=== PATIENT | male | born 1960 | race Caucasian/White ===

== ENCOUNTER 2024-09-18 22:28 | Inpatient (IN) | payer BC, MEDICAID ==
[~2024-09-18] VITALS: Ht 182.9 cm; Wt 147.0 kg
[2024-09-18] MEDS ORDERED: magnesium Cl slow-release 64mg tablet PO PRN (23:15)
[2024-09-18] MEDS ORDERED: magnesium sulf-water 2g/50mL 50 ML IV PRN (23:15)
[2024-09-18] MEDS ORDERED: acetaminophen 325mg tablet PO PRN (23:15)
[2024-09-18] MEDS ORDERED: ondansetron/PF 4mg/2ml inj IV PRN (23:15)
[2024-09-18] MEDS ORDERED: magnesium sulf-water 4G/100mL 100 ML IV PRN (23:15)
[2024-09-18] MEDS ORDERED: lactulose 20gm/30ml cup PO SCH (23:30)
[2024-09-18] MEDS: propranolol LA 60 MG cap.SA.24H PO SCH (23:30)
[2024-09-18] MEDS ORDERED: haloperidol 5mg tablet PO PRN (23:55)
[2024-09-18] MEDS ORDERED: haloperidol lactate 5mg/ml inj IM PRN (23:55)
[2024-09-18] MEDS ORDERED: LORazepam 2 mg/ml vial IV PRN (23:55)
[2024-09-18 23:58] LABS: BASOPHILS % (AUTO) 0.2 % (0-1); EOSINOPHILS # (AUTO) 0.1 X10'3 (0-0.9); EOSINOPHILS % (AUTO) 0.3 % (0-6); HEMATOCRIT 33.2 % (42.0-52.0); LYMPHOCYTES # (AUTO) 1.2 X10'3 (1.1-4.8); LYMPHOCYTES % (AUTO) 5.7 % (21-51); MEAN CORPUSCULAR HEMOGLOBIN 31.9 PG (27.0-31.0); MEAN CORPUSCULAR HGB CONC 33.2 g/dL (33.0-36.5); MEAN CORPUSCULAR VOLUME 96.1 FL (78-98); MONOCYTES # (AUTO) 2.9 X10'3 (0-0.9); NEUTROPHILS # (AUTO) 16.6 X10'3 (1.8-7.7); NEUTROPHILS % (AUTO) 79.8 % (42-75); PLATELET COUNT 192 X10'3 (140-440); RED BLOOD COUNT 3.45 X10'6 (4.70-6.10); RED CELL DISTRIBUTION WIDTH 16.1 % (11.5-14.5); WHITE BLOOD COUNT 20.8 X10'3 (4.5-11.0)
[2024-09-19 00:05] LABS: PRO BRAIN NATRIURETIC PEPTIDE 35 PG/ML (0-125)
[2024-09-19] MEDS ORDERED: PERFLUTREN PROTEIN-A MICROSPHR (Optison) 0.22 MG/ML 3ML VIAL IV PRN (00:15)
[2024-09-19 00:23] LABS: ANISOCYTOSIS 1+; LYMPHOCYTES % (MANUAL) 9 % (21-51); METAMYLEOCYTES% (MANUAL) 1 % (0-0); MONOCYTES % (MANUAL) 8 % (2-12); NEUTROPHILS % (MANUAL) 82 % (42-75); NUCLEATED RED BLOOD CELLS 2 /100WBC (0-0); PLATELET ESTIMATE NORMAL; POLYCHROMASIA 1+; TOTAL CELLS COUNTED 100
[2024-09-19 00:44] LABS: ALANINE AMINOTRANSFERASE 40 U/L (12-78); ALBUMIN 3.3 G/DL (3.4-5.0); ALBUMIN/GLOBULIN RATIO 0.9 (1.1-1.5); ALKALINE PHOSPHATASE 98 IU/L (46-116); ANION GAP 14 (8-16); ASPARTATE AMINO TRANSFERASE 51 U/L (10-37); BILIRUBIN,TOTAL 1.7 MG/DL (0.1-1.0); BLOOD UREA NITROGEN 31 MG/DL (7-18); BUN/CREATININE RATIO 26.1 (10.0-20.0); CALCIUM 8.4 MG/DL (8.5-10.1); CHLORIDE 95 MMOL/L (99-107); CREATININE 1.19 MG/DL (0.60-1.10); GLUCOSE 206 MG/DL (70-104); POTASSIUM 3.6 MMOL/L (3.5-5.1); SODIUM 133 MMOL/L (135-145); TOTAL CARBON DIOXIDE 24.1 MMOL/L (24-32); eCRCL 72 ML/MIN; eGFR 62 ML/MIN
[2024-09-19 02:21] LABS: URINE AMPHETAMINE SCREEN NEGATIVE (Neg); URINE BARBITUATE SCREEN NEGATIVE (Neg); URINE BENZODIAZEPINES SCREEN NEGATIVE (Neg); URINE CANNABINOID SCREEN POSITIVE (Neg); URINE COCAINE SCREEN NEGATIVE (Neg); URINE METHADONE SCREEN NEGATIVE (Neg); URINE OPIATE SCREEN POSITIVE (Neg); URINE PHENCYCLIDINE SCREEN NEGATIVE (Neg)
[2024-09-19 02:40] LABS: BILIRUBIN,URINE NEGATIVE (Neg); CLARITY,URINE CLEAR (Clear); COLOR,URINE YELLOW (Yellow); GLUCOSE, URINE 500 mg/dl (Neg); KETONES,URINE 15 mg/dl (Neg); LEUKOCYTE ESTERASE ,URINE NEGATIVE (Neg); NITRITES, URINE NEGATIVE (Neg); OCCULT BLOOD,URINE NEGATIVE (Neg); PH,URINE 6.5 (4.8-8.0); PROTEIN,URINE NEGATIVE (Neg); UROBILINOGEN,URINE 0.2 E.U/dL (0.2-1.0)
[2024-09-19 02:42] LABS: UA COLLECTION TYPE URINAL
[2024-09-19] MEDS ORDERED: glucagon, human recombinant 1mg kit SUBCUT PRN (03:10)
[2024-09-19] MEDS ORDERED: DEXTROSE 15 GM of carb/4 tabs (each vial/BOTTLE has 4 tablets) PO PRN ×2 (03:10)
[2024-09-19] MEDS ORDERED: dextrose 50%-water 50ml dispensing syringe IV PRN ×2 (03:10)
[2024-09-19] MEDS: normal saline 1000ml 1,000 ML IV SCH (03:31)
[2024-09-19] MEDS: octreotide inj. 500 MCG in normal saline 100ml IV soln 97.5 ML IV SCH (03:31)
[2024-09-19] MEDS: propranolol LA 60 MG cap.SA.24H PO ONE (03:36)
[2024-09-19] MEDS: lactulose 20gm/30ml cup PO SCH (03:36)
[2024-09-19] MEDS: piperacillin/tazo 3.375gm/50ml 50 ML IV SCH (04:19)
[2024-09-19] MEDS: INSULIN LISPRO 100 UNIT/ML INSULN.PEN MULTI-DOSE SQ SCH (07:29)
[2024-09-19 07:34] LABS: APTT 22 SECONDS (22-32); INR 1.3 INR; PROTHROMBIN TIME 13.6 SECONDS (9.0-12.0)
[2024-09-19] MEDS: K and/or MAG REPLACEMENT MC SCH (08:00)
[2024-09-19] MEDS ORDERED: CefTRIAXone/D5W-Rocephin 1gm 50 ML IV SCH (08:00)
[2024-09-19 08:19] LABS: ALANINE AMINOTRANSFERASE 38 U/L (12-78); ALBUMIN 2.9 G/DL (3.4-5.0); ALBUMIN/GLOBULIN RATIO 0.9 (1.1-1.5); ALKALINE PHOSPHATASE 80 IU/L (46-116); ANION GAP 12 (8-16); ASPARTATE AMINO TRANSFERASE 46 U/L (10-37); BILIRUBIN,TOTAL 1.8 MG/DL (0.1-1.0); BLOOD UREA NITROGEN 29 MG/DL (7-18); BUN/CREATININE RATIO 27.1 (10.0-20.0); CALCIUM 8.1 MG/DL (8.5-10.1); CHLORIDE 98 MMOL/L (99-107); CHOL/HDL RATIO 3.9 (0.00-4.99); CHOLESTEROL 124 MG/DL (0-200); CREATININE 1.07 MG/DL (0.60-1.10); GLUCOSE 221 MG/DL (70-104); HDL CHOLESTEROL 32 MG/DL (35-60); LDL CHOLESTEROL 78 MG/DL (50-100); MAGNESIUM 2.5 MG/DL (1.5-2.4); PHOSPHORUS 3.8 MG/DL (2.3-4.5); SODIUM 134 MMOL/L (135-145); TOTAL PROTEIN 6.2 G/DL (6.4-8.2); TRIGLYCERIDES 118 MG/DL (20-135); eCRCL 80 ML/MIN; eGFR 70 ML/MIN
[2024-09-19 08:25] LABS: BASOPHILS % (AUTO) 0.2 % (0-1); EOSINOPHILS # (AUTO) 0.1 X10'3 (0-0.9); EOSINOPHILS % (AUTO) 0.4 % (0-6); HEMATOCRIT 29.3 % (42.0-52.0); LYMPHOCYTES # (AUTO) 0.8 X10'3 (1.1-4.8); LYMPHOCYTES % (AUTO) 5.3 % (21-51); MEAN CORPUSCULAR HGB CONC 34.1 g/dL (33.0-36.5); MEAN CORPUSCULAR VOLUME 96.7 FL (78-98); MEAN PLATELET VOLUME 8.9 FL (7.4-10.4); MONOCYTES # (AUTO) 2.1 X10'3 (0-0.9); MONOCYTES % (AUTO) 13.8 % (2-12); NEUTROPHILS # (AUTO) 12.5 X10'3 (1.8-7.7); NEUTROPHILS % (AUTO) 80.3 % (42-75); PLATELET COUNT 168 X10'3 (140-440); RED BLOOD COUNT 3.03 X10'6 (4.70-6.10); RED CELL DISTRIBUTION WIDTH 16.2 % (11.5-14.5); WHITE BLOOD COUNT 15.5 X10'3 (4.5-11.0)
[2024-09-19] MEDS: pantoprazole 40 MG vial IV SCH (08:38)
[2024-09-19] MEDS: multivitamins, therapeutics tablet PO SCH (08:38)
[2024-09-19] MEDS: thiamine 100mg/ml 2ml inj. IV SCH (08:38)
[2024-09-19] MEDS: potassium Cl 40MEQ/1/2NS 520ml 520 ML IV PRN (09:49)
[2024-09-19 10:21] LABS: TOTAL CELLS COUNTED 100
[2024-09-19 10:25] LABS: ANISOCYTOSIS 1+; PLATELET ESTIMATE NORMAL; POLYCHROMASIA 1+
[2024-09-19] MEDS: potassium Cl 20 mEq SR tablet PO PRN (15:30)
[2024-09-19] MEDS: CefTRIAXone/D5W-Rocephin 1gm 50 ML IV SCH (17:32)
[2024-09-19 18:00] VITALS: BP 116/76; PULSE 70; RESP 17; TEMP 98.2; O2SAT 100
[2024-09-19 20:00] VITALS: BP_SYST 116; BP_SYST 95; BP_SYST 98; BP_DIAS 54; BP_DIAS 57; BP_DIAS 65; PULSE 64; PULSE 71; PULSE 72; RESP 17; O2SAT 100
[2024-09-19] MEDS: acetaminophen 325mg tablet PO PRN (20:23)
[2024-09-19 22:00] VITALS: BP 116/65; PULSE 64; RESP 19; TEMP 98.3; O2SAT 97
[2024-09-20] VITALS (13 sets, daily range): BP systolic 88–158; BP diastolic 54–78; PULSE 57–72; RESP 14–18; TEMP 98–98.4; O2SAT 94–98
[2024-09-20] MEDS ORDERED: IBUP-1984 PO (05:21)
[2024-09-20] MEDS ORDERED: HYDR25TA4 PO (05:21)
[2024-09-20] MEDS ORDERED: GABA300T28 PO (05:21)
[2024-09-20] MEDS ORDERED: METF-438 PO (05:21)
[2024-09-20] MEDS ORDERED: EMPA25TA PO (05:21)
[2024-09-20] MEDS ORDERED: FLO0.4C PO (05:21)
[2024-09-20] MEDS ORDERED: FINA5TAB11 PO (05:21)
[2024-09-20] MEDS ORDERED: AMIT50TA15 PO (05:21)
[2024-09-20] MEDS ORDERED: INSU100I8 SQ (05:21)
[2024-09-20] MEDS ORDERED: POTA20PA31 PO (05:21)
[2024-09-20 08:42] LABS: BASOPHILS # (AUTO) 0.1 X10'3 (0-0.2); BASOPHILS % (AUTO) 0.7 % (0-1); EOSINOPHILS # (AUTO) 0.3 X10'3 (0-0.9); HEMATOCRIT 26.9 % (42.0-52.0); HEMOGLOBIN 8.9 g/dl (14.0-17.9); LYMPHOCYTES # (AUTO) 0.8 X10'3 (1.1-4.8); LYMPHOCYTES % (AUTO) 9.3 % (21-51); MEAN CORPUSCULAR HEMOGLOBIN 32.5 PG (27.0-31.0); MEAN CORPUSCULAR HGB CONC 33.2 g/dL (33.0-36.5); MEAN CORPUSCULAR VOLUME 97.9 FL (78-98); MEAN PLATELET VOLUME 8.7 FL (7.4-10.4); MONOCYTES # (AUTO) 1.5 X10'3 (0-0.9); MONOCYTES % (AUTO) 16.9 % (2-12); NEUTROPHILS # (AUTO) 6.4 X10'3 (1.8-7.7); NEUTROPHILS % (AUTO) 70.1 % (42-75); PLATELET COUNT 139 X10'3 (140-440); RED BLOOD COUNT 2.75 X10'6 (4.70-6.10); RED CELL DISTRIBUTION WIDTH 16.5 % (11.5-14.5); WHITE BLOOD COUNT 9.1 X10'3 (4.5-11.0)
[2024-09-20 08:50] LABS: APTT 23 SECONDS (22-32); INR 1.4 INR; PROTHROMBIN TIME 13.9 SECONDS (9.0-12.0)
[2024-09-20 09:08] LABS: ALANINE AMINOTRANSFERASE 33 U/L (12-78); ALBUMIN 2.6 G/DL (3.4-5.0); ALBUMIN/GLOBULIN RATIO 0.9 (1.1-1.5); ALKALINE PHOSPHATASE 64 IU/L (46-116); ANION GAP 6 (8-16); ASPARTATE AMINO TRANSFERASE 68 U/L (10-37); BILIRUBIN,TOTAL 1.6 MG/DL (0.1-1.0); BLOOD UREA NITROGEN 22 MG/DL (7-18); BUN/CREATININE RATIO 19.5 (10.0-20.0); CALCIUM 7.4 MG/DL (8.5-10.1); CHLORIDE 100 MMOL/L (99-107); CREATININE 1.13 MG/DL (0.60-1.10); GLUCOSE 178 MG/DL (70-104); MAGNESIUM 2.3 MG/DL (1.5-2.4); PHOSPHORUS 2.7 MG/DL (2.3-4.5); POTASSIUM 3.3 MMOL/L (3.5-5.1); SODIUM 132 MMOL/L (135-145); THYROID STIMULATING HORMONE 1.34 ulU/ml (0.34-4.50); TOTAL CARBON DIOXIDE 26.5 MMOL/L (24-32); TOTAL PROTEIN 5.5 G/DL (6.4-8.2); eCRCL 75 ML/MIN; eGFR 66 ML/MIN
[2024-09-20 11:04] LABS: ANISOCYTOSIS 1+; PLATELET ESTIMATE DECREASED; POLYCHROMASIA 1+; TOTAL CELLS COUNTED 100
[2024-09-20] MEDS ORDERED: MIDAZolam 1 MG/ML 5ML VIAL ONE (12:57)
[2024-09-20] MEDS ORDERED: fentaNYL/PF 50MCG/1 ML 2ML syringe ONE (12:57)
[2024-09-20] MEDS ORDERED: LIDOcaine 2% Viscous 15ml cup ONE (12:58)
[2024-09-20] MEDS: potassium Cl 20 mEq SR tablet PO PRN (19:18)
[2024-09-21 06:00] VITALS: BP 134/68; PULSE 68; RESP 15; TEMP 97.7; O2SAT 100
[2024-09-21 07:38] LABS: BASOPHILS # (AUTO) 0.1 X10'3 (0-0.2); BASOPHILS % (AUTO) 0.9 % (0-1); EOSINOPHILS # (AUTO) 0.2 X10'3 (0-0.9); EOSINOPHILS % (AUTO) 3.4 % (0-6); HEMATOCRIT 25.7 % (42.0-52.0); HEMOGLOBIN 8.7 g/dl (14.0-17.9); LYMPHOCYTES # (AUTO) 0.7 X10'3 (1.1-4.8); LYMPHOCYTES % (AUTO) 10.2 % (21-51); MEAN CORPUSCULAR HEMOGLOBIN 33.3 PG (27.0-31.0); MEAN CORPUSCULAR VOLUME 97.9 FL (78-98); MEAN PLATELET VOLUME 8.8 FL (7.4-10.4); MONOCYTES # (AUTO) 1.3 X10'3 (0-0.9); MONOCYTES % (AUTO) 18.3 % (2-12); NEUTROPHILS # (AUTO) 4.8 X10'3 (1.8-7.7); NEUTROPHILS % (AUTO) 67.2 % (42-75); PLATELET COUNT 144 X10'3 (140-440); RED BLOOD COUNT 2.63 X10'6 (4.70-6.10); RED CELL DISTRIBUTION WIDTH 16.7 % (11.5-14.5); WHITE BLOOD COUNT 7.1 X10'3 (4.5-11.0)
[2024-09-21 07:42] LABS: APTT 25 SECONDS (22-32); INR 1.3 INR; PROTHROMBIN TIME 13.5 SECONDS (9.0-12.0)
[2024-09-21 07:46] LABS: ALANINE AMINOTRANSFERASE 38 U/L (12-78); ALBUMIN 2.5 G/DL (3.4-5.0); ALBUMIN/GLOBULIN RATIO 0.8 (1.1-1.5); ALKALINE PHOSPHATASE 72 IU/L (46-116); ANION GAP 4 (8-16); ASPARTATE AMINO TRANSFERASE 91 U/L (10-37); BILIRUBIN,TOTAL 1.7 MG/DL (0.1-1.0); BLOOD UREA NITROGEN 17 MG/DL (7-18); CHLORIDE 99 MMOL/L (99-107); CREATININE 1.06 MG/DL (0.60-1.10); GLUCOSE 166 MG/DL (70-104); MAGNESIUM 1.9 MG/DL (1.5-2.4); PHOSPHORUS 2.8 MG/DL (2.3-4.5); POTASSIUM 3.6 MMOL/L (3.5-5.1); SODIUM 128 MMOL/L (135-145); TOTAL CARBON DIOXIDE 24.6 MMOL/L (24-32); TOTAL PROTEIN 5.5 G/DL (6.4-8.2); eCRCL 80 ML/MIN; eGFR 71 ML/MIN
[2024-09-21 08:00] VITALS: RESP 14; O2SAT 99
[2024-09-21 08:06] LABS: ANISOCYTOSIS 1+; PLATELET ESTIMATE NORMAL; POLYCHROMASIA 1+; TOTAL CELLS COUNTED 100
[2024-09-21] MEDS: gabapentin 300mg capsule PO SCH (08:34)
[2024-09-21] MEDS: HYDROchlorothiazide 25mg tablet PO SCH (08:34)
[2024-09-21] MEDS: tamsulosin 0.4mg capsule PO SCH (08:34)
[2024-09-21] MEDS: EMPAGLIFLOZIN 25 MG TABLET PO SCH (08:34)
[2024-09-21] MEDS: HYDROcodone/acetaminophen 5mg/325mg tablet PO ONE (10:37)
[2024-09-21 11:37] VITALS: RESP 16
[2024-09-21] MEDS ORDERED: FOLI0.4T6 PO (12:48)
[2024-09-21] MEDS: HALLS - SOOTHE MENTHOL 1.8 MG cough drop LOZENGE MM PRN (12:48)
[2024-09-21] MEDS ORDERED: THIA50TA10 PO (12:48)
[2024-09-21] MEDS ORDERED: FURO-150 PO (12:48)
[2024-09-21] MEDS ORDERED: MULT-1085 PO (12:48)
[2024-09-21] MEDS ORDERED: SPIR25TA5 PO (12:48)
[2024-09-21] MEDS ORDERED: PANT-47 PO (12:48)
[2024-09-21] MEDS ORDERED: FERR324T4 PO (13:03)
[2024-09-21] MEDS ORDERED: LACT10SO78 PO (13:03)
[2024-09-23] MEDS ORDERED: folic acid 1mg tablet PO SCH (08:00)
== END 2024-09-21 15:25 | disposition home or self-care (01) | DRG 432 ==
LOC: ER 22:29 → ED HOLD 23:18 → ORTHO 4S 09-19 13:29
PROVIDERS: ADMIT Internal Medicine Critical Care Medicine; ATTEND Internal Medicine
PROC: 0DJ08ZZ Inspection of Upper Intestinal Tract, Via Natural or Artificial Opening Endoscopic (ICD-10-PCS; principal; 2024-09-20)
DX: K70.30 Alcoholic cirrhosis of liver without ascites (principal); I85.11 Secondary esophageal varices with bleeding; E51.2 Wernicke's encephalopathy; K76.6 Portal hypertension; E72.20 Disorder of urea cycle metabolism, unspecified; N17.9 Acute kidney failure, unspecified; I50.32 Chronic diastolic (congestive) heart failure; I42.9 Cardiomyopathy, unspecified; E51.9 Thiamine deficiency, unspecified; K44.9 Diaphragmatic hernia without obstruction or gangrene; D64.9 Anemia, unspecified; Y90.9 Presence of alcohol in blood, level not specified; E11.9 Type 2 diabetes mellitus without complications; K20.90 Esophagitis, unspecified without bleeding; K29.80 Duodenitis without bleeding; I95.1 Orthostatic hypotension; F10.10 Alcohol abuse, uncomplicated; K31.89 Other diseases of stomach and duodenum
CPT/HCPCS: 36415; 43235; 76705; 80053; 80061; 80305; 81003; 82103; 82140; 82607; 82948; 83036; 83605; 83735; 83880; 83930; 84100; 84145; 84443; 85007; 85025; 85610; 85730; 87081; 93005; 93306; 97116; 97161; 97530; 99152; 99285; A4620; G0378; J0696; J2250; J2354; J2470; J2543; J3010; J3411; J3480; J7030

== ENCOUNTER 2024-11-17 10:31 | Inpatient (IN) | payer BC, MEDICAID ==
[~2024-11-17] VITALS: Ht 182.9 cm; Wt 153.2 kg
[~2024-11-17 10:31] MED LIST: AMIT50TA15 PO; EMPA25TA PO; FERR324T4 PO; FINA5TAB11 PO; FLO0.4C PO; FURO-150 PO; GABA300T28 PO; INSU100I8 SQ; LACT10SO78 PO; MULT-1085 PO; PANT-47 PO; SPIR25TA5 PO; THIA50TA10 PO
[2024-11-17] MEDS: pantoprazole 40MG/NS 100ML BAG 100 ML IV SCH (11:27)
[2024-11-17] MEDS: octreotide inj. 500 MCG in normal saline 100ml IV soln 97.5 ML IV SCH ×2 (11:28→22:45)
[2024-11-17 11:51] LABS: BASOPHILS % (AUTO) 0.3 % (0-1); EOSINOPHILS % (AUTO) 0.1 % (0-6); HEMATOCRIT 29.4 % (42.0-52.0); HEMOGLOBIN 9.1 g/dl (14.0-17.9); LYMPHOCYTES # (AUTO) 0.4 X10'3 (1.1-4.8); LYMPHOCYTES % (AUTO) 2.8 % (21-51); MEAN CORPUSCULAR HEMOGLOBIN 25.6 PG (27.0-31.0); MEAN CORPUSCULAR HGB CONC 31.1 g/dL (33.0-36.5); MEAN CORPUSCULAR VOLUME 82.3 FL (78-98); MEAN PLATELET VOLUME 8.8 FL (7.4-10.4); MONOCYTES # (AUTO) 1.2 X10'3 (0-0.9); MONOCYTES % (AUTO) 9.3 % (2-12); NEUTROPHILS # (AUTO) 11.7 X10'3 (1.8-7.7); NEUTROPHILS % (AUTO) 87.5 % (42-75); PLATELET COUNT 235 X10'3 (140-440); RED BLOOD COUNT 3.57 X10'6 (4.70-6.10); RED CELL DISTRIBUTION WIDTH 19.6 % (11.5-14.5); WHITE BLOOD COUNT 13.4 X10'3 (4.5-11.0)
[2024-11-17 11:56] LABS: ALBUMIN 2.5 G/DL (3.4-5.0); ANION GAP 12 (8-16); BLOOD UREA NITROGEN 20 MG/DL (7-18); BUN/CREATININE RATIO 14.9 (10.0-20.0); CALCIUM 8.4 MG/DL (8.5-10.1); CHLORIDE 99 MMOL/L (99-107); CREATININE 1.34 MG/DL (0.60-1.10); POTASSIUM 4.8 MMOL/L (3.5-5.1); SODIUM 132 MMOL/L (135-145); TOTAL CARBON DIOXIDE 21.5 MMOL/L (24-32); eCRCL 64 ML/MIN; eGFR 54 ML/MIN
[2024-11-17 12:00] LABS: APTT 26 SECONDS (22-32); GLUCOSE 429 MG/DL (70-104); INR 1.6 INR; PROTHROMBIN TIME 15.8 SECONDS (9.0-12.0)
[2024-11-17 12:41] LABS: BILIRUBIN,URINE NEGATIVE (Neg); CLARITY,URINE CLEAR (Clear); COLOR,URINE YELLOW (Yellow); GLUCOSE, URINE 100 mg/dl (Neg); KETONES,URINE NEGATIVE (Neg); LEUKOCYTE ESTERASE ,URINE NEGATIVE (Neg); NITRITES, URINE NEGATIVE (Neg); OCCULT BLOOD,URINE NEGATIVE (Neg); PH,URINE 6.5 (4.8-8.0); PROTEIN,URINE NEGATIVE (Neg); UROBILINOGEN,URINE 0.2 E.U/dL (0.2-1.0)
[2024-11-17 12:49] LABS: UA COLLECTION TYPE CLN CATCH MIDSTREAM
[2024-11-17 13:19] LABS: ALANINE AMINOTRANSFERASE 16 U/L (12-78); ALBUMIN/GLOBULIN RATIO 0.6 (1.1-1.5); ALKALINE PHOSPHATASE 114 IU/L (46-116); ASPARTATE AMINO TRANSFERASE 29 U/L (10-37); BILIRUBIN,DIRECT 0.9 MG/DL (0-0.3); BILIRUBIN,TOTAL 2.3 MG/DL (0.1-1.0); TOTAL PROTEIN 6.4 G/DL (6.4-8.2)
[2024-11-17 14:04] VITALS: BP 131/79; PULSE 112; RESP 18
[2024-11-17 14:27] LABS: HEMATOCRIT 30.2 % (42.0-52.0); HEMOGLOBIN 9.4 g/dl (14.0-17.9); MEAN CORPUSCULAR HEMOGLOBIN 25.5 PG (27.0-31.0); MEAN CORPUSCULAR VOLUME 82.2 FL (78-98); MEAN PLATELET VOLUME 9.3 FL (7.4-10.4); PLATELET COUNT 210 X10'3 (140-440); RED BLOOD COUNT 3.68 X10'6 (4.70-6.10); RED CELL DISTRIBUTION WIDTH 19.6 % (11.5-14.5); WHITE BLOOD COUNT 12.1 X10'3 (4.5-11.0)
[2024-11-17] MEDS: ondansetron/PF 4mg/2ml inj IV ONE (15:00)
[2024-11-17] MEDS ORDERED: LIDOcaine 2% Viscous 15ml cup ONE (15:17)
[2024-11-17] MEDS ORDERED: MIDAZolam 1 MG/ML 5ML VIAL ONE ×2 (15:17→15:35)
[2024-11-17] MEDS ORDERED: fentaNYL/PF 50MCG/1 ML 2ML syringe ONE (15:17)
[2024-11-17 16:00] VITALS: BP 135/72; PULSE 118; RESP 19; O2SAT 98
[2024-11-17 16:10] VITALS: BP 105/40; PULSE 117; RESP 20; O2SAT 99
[2024-11-17 16:20] VITALS: BP 137/65; PULSE 116; RESP 23; O2SAT 100
[2024-11-17 16:30] VITALS: BP 120/41; PULSE 115; RESP 24; O2SAT 98
[2024-11-17] MEDS ORDERED: magnesium sulf-water 4G/100mL 100 ML IV PRN (19:15)
[2024-11-17] MEDS ORDERED: magnesium hydroxide 30ml (MOM) UD suspension PO PRN (19:15)
[2024-11-17] MEDS ORDERED: potassium Cl 20 mEq SR tablet PO PRN ×2 (19:15)
[2024-11-17] MEDS ORDERED: magnesium sulf-water 2g/50mL 50 ML IV PRN (19:15)
[2024-11-17] MEDS ORDERED: mag hydrox/Alum hydrox/simeth 30ml oral suspension PO PRN (19:15)
[2024-11-17] MEDS: docusate sod 100mg capsule PO SCH (20:00)
[2024-11-17] MEDS: K and/or MAG REPLACEMENT MC SCH (20:00)
[2024-11-17] MEDS ORDERED: FURO-149 PO (21:09)
[2024-11-17] MEDS ORDERED: ASPI-1265 PO (21:16)
[2024-11-17] MEDS ORDERED: [UNRECOGNIZED DRUG - CODE] (21:16)
[2024-11-17] MEDS ORDERED: FLO0.4C (21:16)
[2024-11-17] MEDS ORDERED: TRAM50TA2 PO (21:16)
[2024-11-17] MEDS ORDERED: PANT40TA54 PO (21:16)
[2024-11-17] MEDS ORDERED: SPIR50TA5 PO (21:16)
[2024-11-17] MEDS ORDERED: AMIT50TA15 PO (21:18)
[2024-11-17 21:19] LABS: HEMATOCRIT 26.8 % (42.0-52.0); HEMOGLOBIN 8.6 g/dl (14.0-17.9); MEAN CORPUSCULAR HEMOGLOBIN 26.3 PG (27.0-31.0); MEAN CORPUSCULAR HGB CONC 32.1 g/dL (33.0-36.5); MEAN CORPUSCULAR VOLUME 82.1 FL (78-98); MEAN PLATELET VOLUME 8.7 FL (7.4-10.4); PLATELET COUNT 208 X10'3 (140-440); RED BLOOD COUNT 3.27 X10'6 (4.70-6.10); WHITE BLOOD COUNT 10.5 X10'3 (4.5-11.0)
[2024-11-17] MEDS ORDERED: dextrose 50%-water 50ml dispensing syringe IV PRN ×2 (22:55)
[2024-11-17] MEDS ORDERED: DEXTROSE 15 GM of carb/4 tabs (each vial/BOTTLE has 4 tablets) PO PRN ×2 (22:55)
[2024-11-17] MEDS ORDERED: glucagon, human recombinant 1mg kit SUBCUT PRN (22:55)
[2024-11-17] MEDS ORDERED: insulin Lispro (HumaLOG) vial - multi-dose SQ SCH (23:45)
[2024-11-17] MEDS: INSULIN LISPRO 100 UNIT/ML INSULN.PEN MULTI-DOSE SQ SCH (23:51)
[2024-11-18] MEDS: acetaminophen 1,000mg/100ml IV 100 ML IV ONE (00:23)
[2024-11-18] MEDS: INSULIN LISPRO 100 UNIT/ML INSULN.PEN MULTI-DOSE SQ ONE (00:42)
[2024-11-18] MEDS: ondansetron/PF 4mg/2ml inj IV PRN (04:01)
[2024-11-18] MEDS: morphine 2 MG/ML inj. syringe IV ONE (04:02)
[2024-11-18] MEDS: INSULIN LISPRO 100 UNIT/ML INSULN.PEN MULTI-DOSE SQ SCH (04:05)
[2024-11-18] MEDS: acetaminophen 325mg tablet PO PRN (08:20)
[2024-11-18 08:52] LABS: BASOPHILS # (AUTO) 0.1 X10'3 (0-0.2); BASOPHILS % (AUTO) 0.6 % (0-1); EOSINOPHILS # (AUTO) 0.1 X10'3 (0-0.9); EOSINOPHILS % (AUTO) 1.1 % (0-6); HEMOGLOBIN 7.7 g/dl (14.0-17.9); LYMPHOCYTES # (AUTO) 0.4 X10'3 (1.1-4.8); LYMPHOCYTES % (AUTO) 4.6 % (21-51); MEAN CORPUSCULAR HEMOGLOBIN 25.8 PG (27.0-31.0); MEAN CORPUSCULAR HGB CONC 32.1 g/dL (33.0-36.5); MEAN CORPUSCULAR VOLUME 80.4 FL (78-98); MEAN PLATELET VOLUME 8.5 FL (7.4-10.4); MONOCYTES # (AUTO) 1.3 X10'3 (0-0.9); MONOCYTES % (AUTO) 13.2 % (2-12); NEUTROPHILS # (AUTO) 7.8 X10'3 (1.8-7.7); NEUTROPHILS % (AUTO) 80.5 % (42-75); PLATELET COUNT 182 X10'3 (140-440); RED BLOOD COUNT 2.98 X10'6 (4.70-6.10); RED CELL DISTRIBUTION WIDTH 19.9 % (11.5-14.5); WHITE BLOOD COUNT 9.7 X10'3 (4.5-11.0)
[2024-11-18] MEDS ORDERED: INSULIN LISPRO 100 UNIT/ML INSULN.PEN MULTI-DOSE SQ SCH (09:00)
[2024-11-18 09:30] LABS: ANISOCYTOSIS 2+; MICROCYTOSIS 1+; PLATELET ESTIMATE NORMAL; POIKILOCYTOSIS FEW; POLYCHROMASIA 1+
[2024-11-18 09:36] LABS: ALANINE AMINOTRANSFERASE 29 U/L (12-78); ALBUMIN 2.7 G/DL (3.4-5.0); ALBUMIN/GLOBULIN RATIO 0.6 (1.1-1.5); ALKALINE PHOSPHATASE 104 IU/L (46-116); ANION GAP 12 (8-16); ASPARTATE AMINO TRANSFERASE 93 U/L (10-37); BILIRUBIN,TOTAL 1.8 MG/DL (0.1-1.0); BLOOD UREA NITROGEN 18 MG/DL (7-18); BUN/CREATININE RATIO 11.6 (10.0-20.0); CALCIUM 8.4 MG/DL (8.5-10.1); CHLORIDE 101 MMOL/L (99-107); CREATININE 1.55 MG/DL (0.60-1.10); GLUCOSE 321 MG/DL (70-104); MAGNESIUM 1.6 MG/DL (1.5-2.4); POTASSIUM 3.7 MMOL/L (3.5-5.1); SODIUM 135 MMOL/L (135-145); TOTAL CARBON DIOXIDE 21.7 MMOL/L (24-32); TOTAL PROTEIN 6.9 G/DL (6.4-8.2); eCRCL 55 ML/MIN; eGFR 46 ML/MIN
[2024-11-18 10:20] LABS: HEMATOCRIT 25.3 % (42.0-52.0); HEMOGLOBIN 7.5 g/dl (14.0-17.9); MEAN CORPUSCULAR HGB CONC 29.7 g/dL (33.0-36.5); MEAN CORPUSCULAR VOLUME 87.7 FL (78-98); MEAN PLATELET VOLUME 8.7 FL (7.4-10.4); PLATELET COUNT 145 X10'3 (140-440); RED BLOOD COUNT 2.88 X10'6 (4.70-6.10); WHITE BLOOD COUNT 8.3 X10'3 (4.5-11.0)
[2024-11-18] MEDS: lactulose 20gm/30ml cup PO SCH (11:31)
[2024-11-18] MEDS: normal saline 1000ml 1,000 ML IV SCH (11:32)
[2024-11-18 17:31] LABS: % IRON SATURATION 6 % (11-46); IRON 15 UG/DL (53-167); TOTAL IRON BINDING CAPACITY 253 UG/DL (259-388)
[2024-11-18 18:50] LABS: HEMOGLOBIN A1C 5.9 % (4.5-6.2)
[2024-11-18 19:15] LABS: OSMOLALITY 303 MOSM/K (280-300)
[2024-11-18 19:15] LABS: APTT 26 SECONDS (22-32); INR 1.4 INR; PROTHROMBIN TIME 14.6 SECONDS (9.0-12.0)
[2024-11-18] MEDS: LORazepam 2 mg/ml vial IV ONE (19:16)
[2024-11-18] MEDS ORDERED: haloperidol 5mg tablet PO PRN (19:20)
[2024-11-18 19:42] LABS: BASOPHILS # (AUTO) 0.1 X10'3 (0-0.2); EOSINOPHILS # (AUTO) 0.1 X10'3 (0-0.9); LYMPHOCYTES # (AUTO) 0.6 X10'3 (1.1-4.8); MEAN PLATELET VOLUME 8.2 FL (7.4-10.4); PLATELET COUNT 238 X10'3 (140-440)
[2024-11-18 19:43] LABS: BASOPHILS % (AUTO) 0.9 % (0-1); HEMATOCRIT 24.3 % (42.0-52.0); HEMOGLOBIN 7.8 g/dl (14.0-17.9); LYMPHOCYTES % (AUTO) 4.1 % (21-51); MEAN CORPUSCULAR HEMOGLOBIN 25.7 PG (27.0-31.0); MEAN CORPUSCULAR VOLUME 80.5 FL (78-98); MONOCYTES # (AUTO) 2.1 X10'3 (0-0.9); MONOCYTES % (AUTO) 15.4 % (2-12); NEUTROPHILS % (AUTO) 78.6 % (42-75); RED BLOOD COUNT 3.02 X10'6 (4.70-6.10)
[2024-11-18 20:21] LABS: TOTAL CELLS COUNTED 100
[2024-11-18] MEDS: folic acid 1mg/0.2ml inj IV SCH (20:44)
[2024-11-18] MEDS: carVEDilol 3.125mg tablet PO ONE (20:47)
[2024-11-18] MEDS: amitriptyline 50mg tablet PO SCH (20:50)
[2024-11-18] MEDS: thiamine 100mg/ml 2ml inj. IV SCH (20:51)
[2024-11-18] MEDS ORDERED: insulin glargine (Lantus) pen - multi-dose SQ SCH (21:00)
[2024-11-18] MEDS: insulin glargine (Lantus) pen - multi-dose SQ SCH (21:37)
[2024-11-18] MEDS: haloperidol lactate 5mg/ml inj IM PRN (23:58)
[2024-11-19] VITALS (14 sets, daily range): BP systolic 107–169; BP diastolic 50–90; PULSE 89–113; RESP 14–26; TEMP 97.3–98.9; O2SAT 94–99
[2024-11-19] MEDS: LORazepam 2 mg/ml vial IV PRN (00:22)
[2024-11-19 02:34] LABS: BASOPHILS % (AUTO) 0.3 % (0-1); EOSINOPHILS # (AUTO) 0.1 X10'3 (0-0.9); EOSINOPHILS % (AUTO) 1.2 % (0-6); LYMPHOCYTES # (AUTO) 0.6 X10'3 (1.1-4.8); MEAN CORPUSCULAR HEMOGLOBIN 25.8 PG (27.0-31.0); MEAN CORPUSCULAR HGB CONC 31.8 g/dL (33.0-36.5); MEAN CORPUSCULAR VOLUME 81.1 FL (78-98); MEAN PLATELET VOLUME 8.6 FL (7.4-10.4); MONOCYTES # (AUTO) 1.4 X10'3 (0-0.9); MONOCYTES % (AUTO) 17.1 % (2-12); NEUTROPHILS # (AUTO) 5.9 X10'3 (1.8-7.7); NEUTROPHILS % (AUTO) 74.4 % (42-75); PLATELET COUNT 162 X10'3 (140-440); RED BLOOD COUNT 2.64 X10'6 (4.70-6.10); RED CELL DISTRIBUTION WIDTH 20.1 % (11.5-14.5)
[2024-11-19 02:45] LABS: HEMATOCRIT 21.4 % (42.0-52.0); HEMOGLOBIN 6.8 g/dl (14.0-17.9)
[2024-11-19 03:00] LABS: ALANINE AMINOTRANSFERASE 23 U/L (12-78); ALBUMIN 2.6 G/DL (3.4-5.0); ALBUMIN/GLOBULIN RATIO 0.7 (1.1-1.5); ALKALINE PHOSPHATASE 91 IU/L (46-116); AMYLASE 33 U/L (25-115); ANION GAP 5 (8-16); ASPARTATE AMINO TRANSFERASE 64 U/L (10-37); BILIRUBIN,TOTAL 1.9 MG/DL (0.1-1.0); BLOOD UREA NITROGEN 13 MG/DL (7-18); BUN/CREATININE RATIO 11.9 (10.0-20.0); CALCIUM 8.3 MG/DL (8.5-10.1); CHLORIDE 103 MMOL/L (99-107); CREATININE 1.09 MG/DL (0.60-1.10); GLUCOSE 192 MG/DL (70-104); LIPASE 37 U/L (16-77); MAGNESIUM 1.4 MG/DL (1.5-2.4); PHOSPHORUS 1.6 MG/DL (2.3-4.5); POTASSIUM 3.5 MMOL/L (3.5-5.1); SODIUM 133 MMOL/L (135-145); TOTAL CARBON DIOXIDE 24.6 MMOL/L (24-32); TOTAL PROTEIN 6.3 G/DL (6.4-8.2); eCRCL 78 ML/MIN; eGFR 69 ML/MIN
[2024-11-19 03:05] LABS: TOTAL CELLS COUNTED 100
[2024-11-19 03:06] LABS: ANISOCYTOSIS 2+; ELLIPTOCYTES FEW; HYPOCHROMASIA 1+; PLATELET ESTIMATE NORMAL; STOMATOCYTES FEW
[2024-11-19] MEDS: carVEDilol 3.125mg tablet PO SCH (08:00)
[2024-11-19] MEDS: multivitamins, therapeutics tablet PO SCH (08:00)
[2024-11-19] MEDS: finasteride 5mg tablet PO SCH (08:00)
[2024-11-19] MEDS: furosemide 40mg tablet PO SCH (08:00)
[2024-11-19 08:09] LABS: HEMATOCRIT 24.4 % (42.0-52.0); HEMOGLOBIN 7.9 g/dl (14.0-17.9); MEAN CORPUSCULAR HEMOGLOBIN 26.3 PG (27.0-31.0); MEAN CORPUSCULAR HGB CONC 32.2 g/dL (33.0-36.5); MEAN CORPUSCULAR VOLUME 81.8 FL (78-98); MEAN PLATELET VOLUME 8.1 FL (7.4-10.4); PLATELET COUNT 166 X10'3 (140-440); RED BLOOD COUNT 2.99 X10'6 (4.70-6.10); RED CELL DISTRIBUTION WIDTH 19.1 % (11.5-14.5); WHITE BLOOD COUNT 8.9 X10'3 (4.5-11.0)
[2024-11-19 11:39] LABS: INR 1.4 INR; PROTHROMBIN TIME 13.9 SECONDS (9.0-12.0)
[2024-11-19] MEDS: rifaximin 550mg tablet PO SCH (13:54)
[2024-11-19 16:12] LABS: HEMATOCRIT 22.3 % (42.0-52.0); MEAN CORPUSCULAR HEMOGLOBIN 24.8 PG (27.0-31.0); MEAN CORPUSCULAR HGB CONC 30.3 g/dL (33.0-36.5); MEAN CORPUSCULAR VOLUME 81.8 FL (78-98); MEAN PLATELET VOLUME 8.2 FL (7.4-10.4); PLATELET COUNT 149 X10'3 (140-440); RED BLOOD COUNT 2.73 X10'6 (4.70-6.10); RED CELL DISTRIBUTION WIDTH 19.6 % (11.5-14.5); WHITE BLOOD COUNT 7.2 X10'3 (4.5-11.0)
[2024-11-19 16:20] LABS: HEMOGLOBIN 6.8 g/dl (14.0-17.9)
[2024-11-19 16:24] LABS: INR 1.4 INR; PROTHROMBIN TIME 14.3 SECONDS (9.0-12.0)
[2024-11-19] MEDS: INSULIN LISPRO 100 UNIT/ML INSULN.PEN MULTI-DOSE SQ SCH ×2 (18:45→21:00)
[2024-11-19] MEDS: phytonadione 10 MG/1 ML amp PO SCH (20:00)
[2024-11-19 20:02] LABS: HEMOGLOBIN 7.1 g/dl (14.0-17.9); MEAN CORPUSCULAR HEMOGLOBIN 26.1 PG (27.0-31.0); MEAN CORPUSCULAR HGB CONC 32.1 g/dL (33.0-36.5); MEAN CORPUSCULAR VOLUME 81.5 FL (78-98); MEAN PLATELET VOLUME 8.1 FL (7.4-10.4); PLATELET COUNT 151 X10'3 (140-440); RED CELL DISTRIBUTION WIDTH 19.8 % (11.5-14.5); WHITE BLOOD COUNT 7.4 X10'3 (4.5-11.0)
[2024-11-19] MEDS: diphenhydrAMINE 50 mg/ml inj IM ONE (21:07)
[2024-11-20] VITALS (12 sets, daily range): BP systolic 151–184; BP diastolic 53–89; PULSE 69–105; RESP 13–30; TEMP 97.2–98.9; O2SAT 94–100
[2024-11-20 02:51] LABS: BASOPHILS % (AUTO) 0.6 % (0-1); EOSINOPHILS # (AUTO) 0.1 X10'3 (0-0.9); EOSINOPHILS % (AUTO) 1.8 % (0-6); HEMATOCRIT 26.1 % (42.0-52.0); HEMOGLOBIN 8.5 g/dl (14.0-17.9); LYMPHOCYTES # (AUTO) 0.6 X10'3 (1.1-4.8); LYMPHOCYTES % (AUTO) 9.7 % (21-51); MEAN CORPUSCULAR HGB CONC 32.4 g/dL (33.0-36.5); MEAN CORPUSCULAR VOLUME 83.2 FL (78-98); MEAN PLATELET VOLUME 8.2 FL (7.4-10.4); MONOCYTES # (AUTO) 1.1 X10'3 (0-0.9); MONOCYTES % (AUTO) 19.4 % (2-12); NEUTROPHILS # (AUTO) 3.9 X10'3 (1.8-7.7); NEUTROPHILS % (AUTO) 68.5 % (42-75); PLATELET COUNT 134 X10'3 (140-440); RED BLOOD COUNT 3.14 X10'6 (4.70-6.10); RED CELL DISTRIBUTION WIDTH 19.1 % (11.5-14.5); WHITE BLOOD COUNT 5.7 X10'3 (4.5-11.0)
[2024-11-20 03:10] LABS: ALANINE AMINOTRANSFERASE 23 U/L (12-78); ALBUMIN 2.5 G/DL (3.4-5.0); ALBUMIN/GLOBULIN RATIO 0.7 (1.1-1.5); ALKALINE PHOSPHATASE 89 IU/L (46-116); AMYLASE 27 U/L (25-115); ANION GAP 9 (8-16); ASPARTATE AMINO TRANSFERASE 52 U/L (10-37); BILIRUBIN,TOTAL 3.2 MG/DL (0.1-1.0); BLOOD UREA NITROGEN 11 MG/DL (7-18); BUN/CREATININE RATIO 11.8 (10.0-20.0); CALCIUM 8.1 MG/DL (8.5-10.1); CHLORIDE 103 MMOL/L (99-107); CREATININE 0.93 MG/DL (0.60-1.10); GLUCOSE 139 MG/DL (70-104); LIPASE 24 U/L (16-77); MAGNESIUM 1.6 MG/DL (1.5-2.4); PHOSPHORUS 2.7 MG/DL (2.3-4.5); POTASSIUM 3.3 MMOL/L (3.5-5.1); SODIUM 137 MMOL/L (135-145); TOTAL CARBON DIOXIDE 24.7 MMOL/L (24-32); TOTAL PROTEIN 6.3 G/DL (6.4-8.2); eCRCL 92 ML/MIN; eGFR 83 ML/MIN
[2024-11-20 03:13] LABS: INR 1.4 INR; PROTHROMBIN TIME 14.7 SECONDS (9.0-12.0)
[2024-11-20 03:23] LABS: TOTAL CELLS COUNTED 100
[2024-11-20] MEDS: pantoprazole 40 MG vial IV SCH (08:04)
[2024-11-20] MEDS: furosemide 40mg/4ml inj IV SCH (13:06)
[2024-11-20] MEDS: albuterol 2.5 MG/3 ML nebule NEB SCH (14:48)
[2024-11-20 15:01] LABS: ABG BASE EXCESS -0.3 mmol/L (-2.0-3.0); ABG HCO3 22.8 mmol/L (21.0-28.0); ABG OXYGEN SATURATION 97.5 % (94.0-98.0); ABG PCO2 (T) 30.8 mmHg (35.0-48.0); ABG PH (T) 7.485 (7.350-7.450); ABG PO2 (T) 83.3 mmHg (83.0-108.0); ALLEN'S TEST POSITIVE; FCOHb 1.1 % (0.5-1.5); FHHb 2.5 % (0.0-5.0); FLOW 2 L/min; FMetHb 0.3 % (0.0-1.5); FO2Hb 96.1 % (94.0-98.0); MODE NASAL CANNULA; PATIENT TEMPERATURE 36.3; TOTAL HEMOGLOBIN 9.7 G/dl (13.5-17.5)
[2024-11-20] MEDS ORDERED: potassium Cl 40MEQ/1/2NS 520ml 520 ML IV PRN (15:45)
[2024-11-20] MEDS: potassium Cl 40MEQ/1/2NS 520ml 520 ML IV PRN (17:53)
[2024-11-20] MEDS ORDERED: LORazepam 1 MG tablet PO PRN (19:20)
[2024-11-20] MEDS: LORazepam 2 mg/ml vial IV PRN (21:01)
[2024-11-21] VITALS (8 sets, daily range): BP systolic 140–167; BP diastolic 66–86; PULSE 80–94; RESP 15–30; TEMP 97.7–98.6; O2SAT 95–100
[2024-11-21 05:12] LABS: HBSAG SCREEN Negative (Negative); HEPATITIS C VIRUS ANTIBODY Reactive (Non Reactive)
[2024-11-21] MEDS: LORazepam 2 mg/ml vial IM ONE (05:50)
[2024-11-21 06:43] LABS: BASOPHILS % (AUTO) 0.6 % (0-1); EOSINOPHILS # (AUTO) 0.2 X10'3 (0-0.9); EOSINOPHILS % (AUTO) 3.1 % (0-6); HEMOGLOBIN 8.6 g/dl (14.0-17.9); LYMPHOCYTES # (AUTO) 0.5 X10'3 (1.1-4.8); LYMPHOCYTES % (AUTO) 9.1 % (21-51); MEAN CORPUSCULAR HEMOGLOBIN 26.9 PG (27.0-31.0); MEAN CORPUSCULAR VOLUME 84.1 FL (78-98); MEAN PLATELET VOLUME 8.5 FL (7.4-10.4); MONOCYTES # (AUTO) 0.9 X10'3 (0-0.9); MONOCYTES % (AUTO) 18.1 % (2-12); NEUTROPHILS # (AUTO) 3.6 X10'3 (1.8-7.7); NEUTROPHILS % (AUTO) 69.1 % (42-75); PLATELET COUNT 124 X10'3 (140-440); RED BLOOD COUNT 3.21 X10'6 (4.70-6.10); RED CELL DISTRIBUTION WIDTH 19.1 % (11.5-14.5); WHITE BLOOD COUNT 5.2 X10'3 (4.5-11.0)
[2024-11-21 06:50] LABS: ALANINE AMINOTRANSFERASE 23 U/L (12-78); ALBUMIN 2.6 G/DL (3.4-5.0); ALBUMIN/GLOBULIN RATIO 0.6 (1.1-1.5); ALKALINE PHOSPHATASE 87 IU/L (46-116); AMYLASE 31 U/L (25-115); ANION GAP 10 (8-16); ASPARTATE AMINO TRANSFERASE 61 U/L (10-37); BILIRUBIN,TOTAL 3.9 MG/DL (0.1-1.0); BLOOD UREA NITROGEN 10 MG/DL (7-18); BUN/CREATININE RATIO 10.6 (10.0-20.0); CHLORIDE 106 MMOL/L (99-107); CREATININE 0.94 MG/DL (0.60-1.10); GLUCOSE 114 MG/DL (70-104); LIPASE 38 U/L (16-77); MAGNESIUM 1.8 MG/DL (1.5-2.4); SODIUM 138 MMOL/L (135-145); TOTAL CARBON DIOXIDE 22.4 MMOL/L (24-32); TOTAL PROTEIN 6.9 G/DL (6.4-8.2); eCRCL 91 ML/MIN; eGFR 82 ML/MIN
[2024-11-21 06:51] LABS: POTASSIUM 3.5 MMOL/L (3.5-5.1)
[2024-11-21 07:46] LABS: ANISOCYTOSIS 2+; HYPOCHROMASIA 1+; PLATELET ESTIMATE DECREASED; POLYCHROMASIA 2+; TOTAL CELLS COUNTED 100
[2024-11-21] MEDS: chlordiazePOXIDE 5mg capsule PO PRN (14:48)
[2024-11-21] MEDS: LORazepam 2 mg/ml vial IV PRN (15:28)
[2024-11-21] MEDS: furosemide 40mg/4ml inj IV SCH (20:00)
[2024-11-21] MEDS ORDERED: LORazepam 2 mg/ml vial IV SCH (23:11)
[2024-11-21] MEDS: LORazepam 2 mg/ml vial IV SCH (23:19)
[2024-11-21] MEDS: LORazepam 2 mg/ml vial IV ONE (23:25)
[2024-11-22] VITALS (9 sets, daily range): BP systolic 134–150; BP diastolic 75–97; PULSE 65–101; RESP 14–24; TEMP 96.8–98.3; O2SAT 97–99
[2024-11-22 07:09] LABS: BASOPHILS % (AUTO) 0.8 % (0-1); EOSINOPHILS # (AUTO) 0.2 X10'3 (0-0.9); EOSINOPHILS % (AUTO) 4.6 % (0-6); HEMOGLOBIN 8.7 g/dl (14.0-17.9); LYMPHOCYTES # (AUTO) 0.4 X10'3 (1.1-4.8); MEAN CORPUSCULAR HEMOGLOBIN 26.8 PG (27.0-31.0); MEAN CORPUSCULAR HGB CONC 32.1 g/dL (33.0-36.5); MEAN CORPUSCULAR VOLUME 83.4 FL (78-98); MEAN PLATELET VOLUME 8.5 FL (7.4-10.4); MONOCYTES # (AUTO) 0.6 X10'3 (0-0.9); MONOCYTES % (AUTO) 17.6 % (2-12); NEUTROPHILS # (AUTO) 2.5 X10'3 (1.8-7.7); PLATELET COUNT 124 X10'3 (140-440); RED BLOOD COUNT 3.24 X10'6 (4.70-6.10); RED CELL DISTRIBUTION WIDTH 19.3 % (11.5-14.5); WHITE BLOOD COUNT 3.7 X10'3 (4.5-11.0)
[2024-11-22 07:38] LABS: INR 1.4 INR; PROTHROMBIN TIME 14.5 SECONDS (9.0-12.0)
[2024-11-22 07:53] LABS: ALANINE AMINOTRANSFERASE 19 U/L (12-78); ALBUMIN 2.6 G/DL (3.4-5.0); ALBUMIN/GLOBULIN RATIO 0.6 (1.1-1.5); ALKALINE PHOSPHATASE 80 IU/L (46-116); AMYLASE 27 U/L (25-115); ANION GAP 11 (8-16); ASPARTATE AMINO TRANSFERASE 52 U/L (10-37); BILIRUBIN,TOTAL 3.8 MG/DL (0.1-1.0); BLOOD UREA NITROGEN 6 MG/DL (7-18); BUN/CREATININE RATIO 6.4 (10.0-20.0); CALCIUM 7.7 MG/DL (8.5-10.1); CHLORIDE 104 MMOL/L (99-107); CREATININE 0.94 MG/DL (0.60-1.10); GLUCOSE 106 MG/DL (70-104); LIPASE 25 U/L (16-77); MAGNESIUM 1.7 MG/DL (1.5-2.4); PHOSPHORUS 3.5 MG/DL (2.3-4.5); SODIUM 139 MMOL/L (135-145); TOTAL CARBON DIOXIDE 24.5 MMOL/L (24-32); TOTAL PROTEIN 6.8 G/DL (6.4-8.2); eCRCL 91 ML/MIN; eGFR 82 ML/MIN
[2024-11-22 07:59] LABS: POTASSIUM 2.8 MMOL/L (3.5-5.1)
[2024-11-22] MEDS: potassium Cl 20 mEq SR tablet PO PRN (08:03)
[2024-11-22] MEDS: albuterol 2.5 MG/3 ML nebule NEB PRN (08:40)
[2024-11-22 18:57] LABS: ABG BASE EXCESS 1.6 mmol/L (-2.0-3.0); ABG HCO3 24.9 mmol/L (21.0-28.0); ABG OXYGEN SATURATION 98.3 % (94.0-98.0); ABG PCO2 (T) 34.1 mmHg (35.0-48.0); ALLEN'S TEST POSITIVE; FCOHb 0.8 % (0.5-1.5); FHHb 1.7 % (0.0-5.0); FLOW 2 L/min; FMetHb 0.3 % (0.0-1.5); FO2Hb 97.2 % (94.0-98.0); MODE NASAL CANNULA; PATIENT TEMPERATURE 37.1
[2024-11-22] MEDS ORDERED: LORazepam 2 mg/ml vial IV PRN (19:20)
[2024-11-22] MEDS ORDERED: LORazepam 1 MG tablet PO PRN ×2 (19:20)
[2024-11-22] MEDS: carvedilol 6.25mg tablet PO SCH (19:27)
[2024-11-23] VITALS (7 sets, daily range): BP systolic 135–148; BP diastolic 78–91; PULSE 80–100; RESP 16–24; TEMP 97–98.4; O2SAT 96–98
[2024-11-23] MEDS: acetaminophen 325mg tablet PO PRN (04:23)
[2024-11-23 06:37] LABS: INR 1.4 INR; PROTHROMBIN TIME 14.6 SECONDS (9.0-12.0)
[2024-11-23 06:46] LABS: PHOSPHORUS 3.1 MG/DL (2.3-4.5)
[2024-11-23 08:01] LABS: BASOPHILS % (AUTO) 0.9 % (0-1); EOSINOPHILS # (AUTO) 0.2 X10'3 (0-0.9); EOSINOPHILS % (AUTO) 5.2 % (0-6); HEMATOCRIT 27.6 % (42.0-52.0); HEMOGLOBIN 9.2 g/dl (14.0-17.9); LYMPHOCYTES # (AUTO) 0.4 X10'3 (1.1-4.8); LYMPHOCYTES % (AUTO) 11.1 % (21-51); MEAN CORPUSCULAR HEMOGLOBIN 27.4 PG (27.0-31.0); MEAN CORPUSCULAR HGB CONC 33.2 g/dL (33.0-36.5); MEAN CORPUSCULAR VOLUME 82.6 FL (78-98); MEAN PLATELET VOLUME 8.4 FL (7.4-10.4); MONOCYTES # (AUTO) 0.6 X10'3 (0-0.9); NEUTROPHILS # (AUTO) 2.4 X10'3 (1.8-7.7); NEUTROPHILS % (AUTO) 66.8 % (42-75); PLATELET COUNT 143 X10'3 (140-440); RED BLOOD COUNT 3.35 X10'6 (4.70-6.10); RED CELL DISTRIBUTION WIDTH 19.8 % (11.5-14.5); WHITE BLOOD COUNT 3.5 X10'3 (4.5-11.0)
[2024-11-23] MEDS: pantoprazole 40 MG vial IV SCH (08:18)
[2024-11-23 08:30] LABS: ALANINE AMINOTRANSFERASE 23 U/L (12-78); ALBUMIN 2.7 G/DL (3.4-5.0); ALBUMIN/GLOBULIN RATIO 0.6 (1.1-1.5); ALKALINE PHOSPHATASE 94 IU/L (46-116); ANION GAP 9 (8-16); ASPARTATE AMINO TRANSFERASE 55 U/L (10-37); BILIRUBIN,TOTAL 3.6 MG/DL (0.1-1.0); BLOOD UREA NITROGEN 5 MG/DL (7-18); BUN/CREATININE RATIO 5.6 (10.0-20.0); CALCIUM 8.1 MG/DL (8.5-10.1); CHLORIDE 105 MMOL/L (99-107); GLUCOSE 112 MG/DL (70-104); POTASSIUM 3.1 MMOL/L (3.5-5.1); SODIUM 140 MMOL/L (135-145); TOTAL CARBON DIOXIDE 26.1 MMOL/L (24-32); TOTAL PROTEIN 6.9 G/DL (6.4-8.2); eCRCL 95 ML/MIN; eGFR 86 ML/MIN
[2024-11-23] MEDS: potassium Cl 20 mEq SR tablet PO PRN (08:55)
[2024-11-23] MEDS: INSULIN LISPRO 100 UNIT/ML INSULN.PEN MULTI-DOSE SQ SCH (12:00)
[2024-11-23] MEDS: lactulose 20gm/30ml cup PO SCH (15:35)
[2024-11-23] MEDS: potassium Cl 20 mEq SR tablet PO STA (17:36)
[2024-11-23] MEDS: lactose-reduced food (Ensure Enlive) - 237ml bottle PO SCH (18:00)
[2024-11-23] MEDS: LORazepam 1 MG tablet PO PRN (22:26)
[2024-11-24] VITALS (9 sets, daily range): BP systolic 116–144; BP diastolic 59–79; PULSE 74–97; RESP 15–20; TEMP 96.8–98; O2SAT 96–100
[2024-11-24 11:04] LABS: BASOPHILS % (AUTO) 0.7 % (0-1); EOSINOPHILS # (AUTO) 0.2 X10'3 (0-0.9); HEMATOCRIT 31.8 % (42.0-52.0); LYMPHOCYTES # (AUTO) 0.4 X10'3 (1.1-4.8); LYMPHOCYTES % (AUTO) 6.9 % (21-51); MEAN CORPUSCULAR HEMOGLOBIN 26.4 PG (27.0-31.0); MEAN CORPUSCULAR HGB CONC 31.4 g/dL (33.0-36.5); MEAN CORPUSCULAR VOLUME 84.1 FL (78-98); MEAN PLATELET VOLUME 8.3 FL (7.4-10.4); MONOCYTES # (AUTO) 0.8 X10'3 (0-0.9); MONOCYTES % (AUTO) 12.7 % (2-12); NEUTROPHILS % (AUTO) 76.7 % (42-75); PLATELET COUNT 165 X10'3 (140-440); RED BLOOD COUNT 3.79 X10'6 (4.70-6.10); RED CELL DISTRIBUTION WIDTH 19.3 % (11.5-14.5); WHITE BLOOD COUNT 6.5 X10'3 (4.5-11.0)
[2024-11-24 11:19] LABS: ALANINE AMINOTRANSFERASE 25 U/L (12-78); ALBUMIN 2.9 G/DL (3.4-5.0); ALBUMIN/GLOBULIN RATIO 0.6 (1.1-1.5); ALKALINE PHOSPHATASE 113 IU/L (46-116); ANION GAP 11 (8-16); ASPARTATE AMINO TRANSFERASE 56 U/L (10-37); BLOOD UREA NITROGEN 5 MG/DL (7-18); BUN/CREATININE RATIO 4.2 (10.0-20.0); CALCIUM 8.2 MG/DL (8.5-10.1); CHLORIDE 102 MMOL/L (99-107); CREATININE 1.19 MG/DL (0.60-1.10); GLUCOSE 136 MG/DL (70-104); SODIUM 140 MMOL/L (135-145); TOTAL CARBON DIOXIDE 26.6 MMOL/L (24-32); TOTAL PROTEIN 7.5 G/DL (6.4-8.2); eCRCL 72 ML/MIN; eGFR 62 ML/MIN
[2024-11-24] MEDS ORDERED: potassium Cl 40MEQ/1/2NS 520ml 520 ML IV PRN (11:35)
[2024-11-24] MEDS: LORazepam 2 mg/ml vial IV PRN (13:21)
[2024-11-24] MEDS: potassium Cl 20 mEq SR tablet PO PRN (16:51)
[2024-11-25] MEDS: LORazepam 2 mg/ml vial IV ONE (00:39)
[2024-11-25 02:00] VITALS: BP 117/69; PULSE 74; RESP 20; TEMP 97.2; O2SAT 100
[2024-11-25 07:00] VITALS: BP 111/68; PULSE 74; RESP 20; TEMP 97.7; O2SAT 98
[2024-11-25 07:34] LABS: BASOPHILS # (AUTO) 0.1 X10'3 (0-0.2); EOSINOPHILS # (AUTO) 0.2 X10'3 (0-0.9); EOSINOPHILS % (AUTO) 3.7 % (0-6); HEMATOCRIT 29.9 % (42.0-52.0); HEMOGLOBIN 9.1 g/dl (14.0-17.9); LYMPHOCYTES # (AUTO) 0.4 X10'3 (1.1-4.8); LYMPHOCYTES % (AUTO) 8.3 % (21-51); MEAN CORPUSCULAR HEMOGLOBIN 25.5 PG (27.0-31.0); MEAN CORPUSCULAR HGB CONC 30.5 g/dL (33.0-36.5); MEAN CORPUSCULAR VOLUME 83.7 FL (78-98); MEAN PLATELET VOLUME 8.5 FL (7.4-10.4); MONOCYTES # (AUTO) 0.7 X10'3 (0-0.9); MONOCYTES % (AUTO) 12.8 % (2-12); NEUTROPHILS # (AUTO) 3.9 X10'3 (1.8-7.7); NEUTROPHILS % (AUTO) 74.2 % (42-75); PLATELET COUNT 144 X10'3 (140-440); RED BLOOD COUNT 3.57 X10'6 (4.70-6.10); RED CELL DISTRIBUTION WIDTH 18.9 % (11.5-14.5); WHITE BLOOD COUNT 5.3 X10'3 (4.5-11.0)
[2024-11-25 08:00] VITALS: RESP 20; O2SAT 98
[2024-11-25 08:21] LABS: ALANINE AMINOTRANSFERASE 26 U/L (12-78); ALBUMIN 2.8 G/DL (3.4-5.0); ALBUMIN/GLOBULIN RATIO 0.6 (1.1-1.5); ALKALINE PHOSPHATASE 116 IU/L (46-116); ANION GAP 12 (8-16); ASPARTATE AMINO TRANSFERASE 54 U/L (10-37); BILIRUBIN,TOTAL 2.6 MG/DL (0.1-1.0); BLOOD UREA NITROGEN 5 MG/DL (7-18); BUN/CREATININE RATIO 5.7 (10.0-20.0); CALCIUM 8.5 MG/DL (8.5-10.1); CHLORIDE 100 MMOL/L (99-107); CREATININE 0.87 MG/DL (0.60-1.10); GLUCOSE 166 MG/DL (70-104); SODIUM 138 MMOL/L (135-145); TOTAL CARBON DIOXIDE 26.3 MMOL/L (24-32); TOTAL PROTEIN 7.4 G/DL (6.4-8.2); eCRCL 98 ML/MIN; eGFR 89 ML/MIN
[2024-11-25 11:00] VITALS: BP 136/83; PULSE 81; RESP 18; TEMP 97.7; O2SAT 99
[2024-11-25] MEDS ORDERED: RIFA550T PO (13:40)
[2024-11-25] MEDS: lactulose 20gm/30ml cup PO SCH (13:49)
[2024-11-25] MEDS ORDERED: MULT-25 PO (13:50)
[2024-11-25] MEDS ORDERED: PROP10TA10 PO (13:50)
[2024-11-25] MEDS ORDERED: PHYT5TAB30 PO (13:50)
[2024-11-25] MEDS ORDERED: ASPI-1397 PO (13:50)
[2024-11-25] MEDS ORDERED: LACT10SO78 PO ×2 (13:50→15:20)
[2024-11-25] MEDS: potassium Cl 20 mEq SR tablet PO PRN (13:51)
[2024-11-25] MEDS ORDERED: THIA50TA10 PO (13:54)
[2024-11-25] MEDS ORDERED: POTA-207 PO (13:57)
== END 2024-11-25 15:45 | disposition home health service (06) | DRG 432 ==
LOC: ER 10:32 → ED HOLD 19:18 → PCU 3S 11-19 07:00
PROVIDERS: ADMIT Family Medicine; ATTEND Family Medicine
PROC: 06L38CZ Occlusion of Esophageal Vein with Extraluminal Device, Via Natural or Artificial Opening Endoscopic (ICD-10-PCS; principal; 2024-11-17)
PROC: 30233K1 Transfusion of Nonautologous Frozen Plasma into Peripheral Vein, Percutaneous Approach (ICD-10-PCS; 2024-11-19)
PROC: 30233N1 Transfusion of Nonautologous Red Blood Cells into Peripheral Vein, Percutaneous Approach (ICD-10-PCS; 2024-11-19)
DX: K70.30 Alcoholic cirrhosis of liver without ascites (principal); I85.11 Secondary esophageal varices with bleeding; N17.0 Acute kidney failure with tubular necrosis; K76.6 Portal hypertension; E87.1 Hypo-osmolality and hyponatremia; F10.130 Alcohol abuse with withdrawal, uncomplicated; D61.818 Other pancytopenia; K76.82 Hepatic encephalopathy; E11.9 Type 2 diabetes mellitus without complications; B19.20 Unspecified viral hepatitis C without hepatic coma; K31.89 Other diseases of stomach and duodenum; N40.0 Benign prostatic hyperplasia without lower urinary tract symptoms; D73.1 Hypersplenism; D50.0 Iron deficiency anemia secondary to blood loss (chronic); Z80.7 Family history of other malignant neoplasms of lymphoid, hematopoietic and related tissues; Z79.84 Long term (current) use of oral hypoglycemic drugs
CPT/HCPCS: 36415; 36430; 36600; 43244; 71045; 76700; 80048; 80053; 80076; 81003; 82140; 82150; 82803; 82948; 83036; 83540; 83550; 83690; 83735; 83930; 84100; 84132; 85007; 85008; 85018; 85025; 85027; 85610; 85730; 86803; 86885; 86900; 86901; 86920; 87081; 87340; 87522; 93005; 94640; 94760; 97110; 97116; 97162; 97530; 99152; 99153; 99291; 99292; A4615; A4620; A6213; A6590; G0378; J0131; J1200; J1630; J1815; J1940; J2060; J2250; J2270; J2354; J2405; J2470; J3010; J3411; J3430; J3480; J3490; J7030; J7040; J7050; P9016; P9059